=== PATIENT | female | born 1960 | race Caucasian/White ===

== ENCOUNTER → 2025-01-07 | Day surgery (SDC) | payer MEDICARE, OTHER ==
[~2025-01-07] MED LIST: Glycopyrrolate 0.2 MG/ML 5 ML MDV IV ONE; Midazolam 1 MG/ML 2 ML SDV IV ONE; Propofol 200 MG/20 ML SDV IV ONE; Sodium Chloride 0.9% 10 ML Syringe FLUSH PRN; fentaNYL 100 MCG/2 ML SDV IV ONE
[2025-01-07] MEDS: Lactated Ringers 1,000 ML IV SCH (06:59)
== END | disposition home or self-care (01) ==
LOC: FB.SDS 06:18
PROVIDERS: ATTEND Surgery
DX: Z12.11 Encounter for screening for malignant neoplasm of colon (principal); K63.5 Polyp of colon; R19.5 Other fecal abnormalities
CPT/HCPCS: 00811; 45384; 88305; A9270; J1596; J2250; J2704; J3010; J7120